=== PATIENT | female | born 1965 | race Caucasian/White ===

== ENCOUNTER 2017-10-29 00:25 | Emergency (ER) | payer OTHER, MEDICARE, SELFPAY ==
--- NOTE | 2017-10-29 00:33 | DI.RAD.S_ITS ---
PROCEDURE: XR WRIST RT MIN 3V INDICATIONS: hurt arm 3 weeks ago thinks broken TECHNIQUE: 3 views of the wrist were acquired. COMPARISON: None. FINDINGS: Bones: There is a fracture seen involving the distal ulnar shaft, with mild angulation. There is abundant periosteal reaction seen, with mild bony bridging. No additional fractures are detected. Degenerative changes are seen, particularly involving the radial aspect of the carpus. Soft tissues: No suspicious soft tissue calcifications. IMPRESSION: Subacute, healing fracture involving the distal ulna, which is consistent with the given history of potential fracture 3 weeks previously. Dictated by: Livan Mendoza M.D. on 10/29/2017 at 10:41 Approved by: Livan Mendoza M.D. on 10/29/2017 at 10:42
[2017-10-29 00:34] VITALS: BP 149/84; PULSE 125; RESP 18; TEMP 36.9; O2SAT 100; BMI 20.2
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
[2017-10-29 01:44] VITALS: BP 140/80; PULSE 110; RESP 16; TEMP 36.8; O2SAT 99
== END 2017-10-29 01:45 | disposition home or self-care (01) ==
PROVIDERS: Emergency Provider Emergency Medicine
DX: S52.201G Unspecified fracture of shaft of right ulna, subsequent encounter for closed fracture with delayed healing (principal); W22.8XXA Striking against or struck by other objects, initial encounter
CPT/HCPCS: 29125; 73110; 99282; 99283

== ENCOUNTER 2018-05-21 01:43 | Emergency (ER) | payer MEDICARE, SELFPAY ==
[2018-05-21 01:46] VITALS: BP 150/87; PULSE 106; RESP 16; TEMP 36.4; O2SAT 99; BMI 18.8
--- NOTE | 2018-05-21 02:04 | ED.DENTAL ---
HPI - Dental/Oral General Chief complaint: Dental/Oral Stated complaint: states abscess right side of face Time Seen by Provider: 05/21/18 01:45 Source: patient Mode of arrival: ambulatory Limitations: no limitations History of Present Illness HPI Narrative: 52-year-old female here for evaluation which he thinks is a dental abscess. She has 2 broken teeth in the right lower side of her jaw. States they have been hurting for the past couple days but the swelling started within the past 24 hours. No fevers. Has been taking Motrin at home for them. States she knows that she has some teeth that need extracted however she wants ?implants ?. She does not have a dentist in local area. Related Data Previous Rx's Medication Instructions Recorded penicillin V potassium 500 mg PO QID 7 Days #28 tab 05/21/18 Allergies Allergy/AdvReac Type Severity Reaction Status Date / Time INGREDIENT: NO KNOWN - NO Allergy Unknown Uncoded 05/18/17 12:59 KNOWN DRUG ALLERGY Review of Systems Constitutional Denies fever(s) and Reports headache(s) ENT Ears, Nose, Mouth, and Throat: Reports facial pain, Reports headache(s), Reports mouth pain, Denies nasal congestion and Denies disequilibrium Comments: Pain radiating to the right ear Cardiovascular Denies dyspnea Respiratory Denies dyspnea Integumentary/Breasts Denies rash Neurologic Reports headache(s) and Denies disequilibrium Hematologic/Lymphatic Denies easy bleeding and Denies easy bruising Allergic/Immunologic Denies urticaria [facility] Medical History Healthy adult (Acute) Social History Smoking Status: Current every day smoker Social History Smoking Status: Current every day smoker Exam Initial Vital Signs Initial Vital Signs: Vital Signs Temperature 97.6 F 05/21/18 01:46 Pulse Rate 106 H 05/21/18 01:46 Respiratory Rate 16 05/21/18 01:46 Blood Pressure 150/87 H 05/21/18 01:46 Pulse Oximetry 99 05/21/18 01:46 Const General: cooperative, well developed, well groomed and No acute distress Orientation: alert, awake and oriented x3 HENMT Head: normal to inspection and normocephalic Ears: TM's normal bilaterally Nose: external nose normal Face and sinus: other (Swelling right mandibular area. Without overlying erythema) Mouth: oral mucosae normal Teeth and gingiva: other (Poor dentition. Cracked teeth right lower side) Throat: posterior oropharynx normal Resp Effort & Inspection: normal respiratory effort Skin Lesions: no lesions Rashes: no rashes Neuro General: alert, awake and oriented x3 Extrem General: normal to inspection and capillary refill normal Course Orders Ordered: Discontinued Medications Hydrocodone Bitart/Acetaminophen (Vicodin Prepack) 1 bottle MISC SEEINSTR ONE Stop: 05/21/18 02:05 Hydrocodone Bitart/Acetaminophen (Roll 5/325) 1 tab PO NOW ONE Stop: 05/21/18 02:05 Penicillin V Potassium (Veetids) 500 mg PO NOW ONE Stop: 05/21/18 02:05 Vital Signs - 8 hr 05/21/18 01:46 Temperature 97.6 F Pulse Rate 106 H Respiratory Rate 16 Blood Pressure 150/87 H Pulse Oximetry 99 MDM - Dental/Oral MDM Narrative Medical decision making narrative: Patient with very poor dentition and missing teeth and worn teeth right lower side of her jaw. She does have swelling along the right mandibular area. I did perform an inferior alveolar block patient was given 1st dose of oral antibiotics here in the emergency department. Will send home with antibiotics and also a prepack of pain medication. Informed her that she did need to see dental for definitive treatment. She was given return precautions. No respiratory issues. Discharge Plan Departure Patient Disposition: Home Clinical Impression: Dental abscess Instructions: Tooth Abscess, DI for Dental Pain Activity Restrictions/Additional Instructions: You do need to follow-up with the dentist. You can contact the [facility] for follow-up. Also contact her primary doctor. Take the antibiotics as directed. Return to the emergency department for any new or worsening symptoms Prescriptions: New penicillin V potassium 500 mg tablet 500 mg PO QID 7 Days Qty: 28 RF: 0
[2018-05-21] MEDS: HYDROCODONE/ACET 5/325 TABLET 1 TAB PO (02:19)
[2018-05-21] MEDS: HYDROCODONE/ACET 5/325 PREPACK 1 BOTTLE MISC (02:20)
[2018-05-21] MEDS: PENICILLIN 250 MG TAB PREPACK 1 BOTTLE MISC (02:20)
[2018-05-21 02:47] VITALS: BP 124/87; PULSE 98; RESP 16; TEMP 36.7; O2SAT 98
== END 2018-05-21 02:49 | disposition home or self-care (01) ==
LOC: ED 02:47
PROVIDERS: Emergency Provider Emergency Medicine
DX: K04.7 Periapical abscess without sinus (principal)
CPT/HCPCS: 99282; 99283

== ENCOUNTER 2019-03-28 21:37 | Emergency (ER) | payer MEDICARE, SELFPAY ==
[2019-03-28 21:44] VITALS: BP 134/99; PULSE 96; RESP 18; TEMP 36.2
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
[2019-03-28] MEDS: KETOROLAC 60 MG/2 ML VIAL 30 MG IM (22:26)
[2019-03-28] MEDS: predniSONE 20 MG TABLET 40 MG PO (22:27)
[2019-03-28 22:46] VITALS: BP 119/74; PULSE 89; RESP 15; O2SAT 98
== END 2019-03-28 22:46 | disposition home or self-care (01) ==
PROVIDERS: Emergency Provider Emergency Medicine
DX: M54.12 Radiculopathy, cervical region (principal)
CPT/HCPCS: 96372; 99283; J1885

== ENCOUNTER 2019-03-30 08:17 | Emergency (ER) | payer MEDICARE, SELFPAY ==
[2019-03-30 08:29] VITALS: BP 128/86; PULSE 96; RESP 18; TEMP 36.3; O2SAT 96; BMI 19.7
--- NOTE | 2019-03-30 08:35 | PC.NURSE ---
unable to obtain visual acuity on left eye. swollen shut.
--- NOTE | 2019-03-30 08:40 | ED_ITS ---
HPI - Skin/Abscess/Foreign Bdy General Chief complaint: Eye Problems Stated complaint: left eye swelling Time Seen by Provider: 03/30/19 08:18 Source: patient Mode of arrival: Family Vehicle Limitations: no limitations History of Present Illness HPI narrative: 53-year-old female daily smoker presents with a chief complaint left-sided forehead pain, swelling and redness. She states 2 days ago she had painful ingrown hair and she attempted to pull it, additionally she had a small pimple that she tried to pop and since then her swelling has worsened a bit and she has developed swelling. The swelling impedes her vision, but when lid pulled open she has full view. No painful ROM of eye. No systemic findings such as fever, chills, nausea or vomiting. MD complaint: abscess/boil Onset (ago): day(s) Tetanus up to date: no Location: face Severity: mild Quality: aching Pain Consistency: constant Relieving factors: none Exacerbating factors: palpation Context: other Treatments prior to arrival: attempted to drain pus at home Related Data Previous Rx's Medication Instructions Recorded gabapentin 300 mg PO TID #90 cap 03/28/19 prednisone 40 mg PO DAILY 4 Days #8 tab 03/28/19 doxycycline hyclate 100 mg PO BID #20 tab 03/30/19 ibuprofen 600 mg PO TID-QID PRN #20 tab 03/30/19 Allergies Allergy/AdvReac Type Severity Reaction Status Date / Time No Known Drug Allergies Allergy Verified 03/30/19 08:53 Review of Systems Constitutional Constitutional: Denies chills, Denies fatigue, Denies fever(s), Denies frequent falls, Denies lethargy and Denies weakness Eyes Eyes: Denies change in vision, Denies eye discharge, Denies irritation and Denies loss of vision ENT Ears, Nose, Mouth, and Throat: Denies change in voice, Denies dizziness, Denies neck pain, Denies sore throat and Denies throat swelling Cardiovascular Cardiovascular: Denies chest pain, Denies irregular heart rhythm, Denies lightheadedness, Denies palpitations, Denies dyspnea, Denies dyspnea on exertion and Denies orthopnea Respiratory Respiratory: Denies cough, Denies dyspnea, Denies dyspnea on exertion and Denies wheezing Gastrointestinal Gastrointestinal: Denies abdominal pain, Denies change in bowel habits, Denies diarrhea, Denies nausea and Denies vomiting Genitourinary Genitourinary: Denies hematuria, Denies flank pain, Denies urinary incontinence and Denies urinary urgency Musculoskeletal Musculoskeletal: Denies back pain, Denies muscle weakness, Denies neck pain, Denies numbness and Denies tingling Integumentary/Breasts Skin/Breast: Denies pruritus, Denies erythema, Denies rash, Reports skin pain, Reports skin swelling and Denies wounds Neurologic Neurologic: Denies behavioral changes, Denies confusion, Denies dizziness, Denies frequent falls, Denies loss of vision, Denies numbness, Denies tingling and Denies weakness Psychiatric Psychiatric: Denies anxiety, Denies behavioral changes, Denies confusion, Denies depression, Denies homicidal ideation and Denies suicidal ideation Endocrine Endocrine: Denies fatigue, Denies flushing and Denies palpitations Hematologic/Lymphatic Hematologic/Lymphatic: Denies easy bruising Allergic/Immunologic Allergic/Immunologic: Denies urticaria, Denies throat swelling and Denies wheezing Patient History Social History Smoking Status: Current every day smoker Smoking Status: Current every day smoker alcohol intake frequency: 0-2 drinks per day Substance Use Type: marijuana Exam Narrative Exam Narrative: GENERAL: [53] year old patient appears stated age. Well- nourished, well-developed patient, in mild distress. Complaining of Left sided facial pain HEAD: Redness with some induration (no fluctuance) above left brow. Upper lid edematous, but no erythema or tenderness. No suggestion of abscess EYES: Pupils equal round and reactive. Extraocular motions intact. No scleral icterus. No injection or drainage. Eye lid can be opened manually, causing pain in brow. No scleral injection, no painful EOMs, no vision change ENT: Nose without bleeding, purulent drainage. Throat without erythema, tonsillar hypertrophy or exudate. Airway patent. NECK: Trachea midline. Non tender CARDIOVASCULAR: Regular rate and rhythm without murmurs, gallops, or rubs. RESPIRATORY: Clear to auscultation. Breath sounds equal bilaterally. No wheezes, rales, or rhonchi. GASTROINTESTINAL: Abdomen soft, non-tender, nondistended. EXTREMITIES: No edema or joint tenderness. BACK: Nontender without deformity or crepitance. No flank tenderness. NEURO: AOx3. SKIN: No rash or erythema of visible areas other than mentioned above Initial Vital Signs Initial Vital Signs: Vital Signs Temperature 97.4 F L 03/30/19 08:29 Pulse Rate 96 H 03/30/19 08:29 Respiratory Rate 18 03/30/19 08:29 Blood Pressure 128/86 03/30/19 08:29 Pulse Oximetry 96 03/30/19 08:29 Course Course Course Narrative: Patient expresses concern regarding access to ABX due to lack of funds. GoodRx card given (Doxy is $12 at [facility]) and call placed to [employer] for other options. Patieng given first dose now. [employer] able to produce voucher for ABX. Orders Ordered: Discontinued Medications Diphtheria/Tetanus/Acell Pertussis (Adacel) 0.5 ml IM .ONCE ONE Stop: 03/30/19 08:52 Last Admin: 03/30/19 08:56 Dose: 0.5 ml Documented by: FERNANDO Doxycycline Hyclate (Vibramycin) 100 mg PO NOW ONE Stop: 03/30/19 08:34 Last Admin: 03/30/19 08:44 Dose: 100 mg Documented by: JAVIER Ibuprofen (Advil) 400 mg PO NOW ONE Stop: 03/30/19 08:42 Last Admin: 03/30/19 08:44 Dose: 400 mg Documented by: JAVIER Vital Signs Vital signs: Vital Signs - 8 hr 03/30/19 08:29 Temperature 97.4 F L Pulse Rate 96 H Respiratory Rate 18 Blood Pressure 128/86 Pulse Oximetry 96 MDM - Skin/Abscess/Foreign Bdy MDM Narrative Medical decision making narrative: Small abscess drained at home with worsening symptoms in aftermath. No ongoing fluctuance or drainage. Upper lid swollen but doesn't show signs of infection. No painful EOM to suggest orbital cellulitis. Nothing to I/D. No indication of systemic findings. No need for imaging at this point. Return precautions given, questions answered to her apparent satisfaction. Discharge Plan Departure Patient Disposition: Home Clinical Impression: Cellulitis of face Instructions: DI for Cellulitis -- Adult Activity Restrictions/Additional Instructions: *You have been diagnosed with [cellulitis with possible small spontaneously draining abscess above left eye] *What to do: *Take medications as directed *Follow up with your primary care provider in 2-3 days, call for an appointment. Let them know you were seen in the Emergency Department and that we ask that you be seen in follow up *Return to ER if you should have any new, worsening or concerning symptoms, such as [worsening facial swelling, pain, or the development of fever, chills, or other bothersome symptoms ] Prescriptions: New ibuprofen 600 mg tablet 600 mg PO TID-QID PRN (Reason: pain) Qty: 20 RF: 0 doxycycline hyclate 100 mg tablet 100 mg PO BID Qty: 20 RF: 0 No Action prednisone 20 mg tablet 40 mg PO DAILY 4 Days Qty: 8 RF: 0 gabapentin 300 mg capsule 300 mg PO TID Qty: 90 RF: 0 Referrals: [facility] [Outside]
[2019-03-30] MEDS: DOXYCYCLINE HYCLATE 100 MG TABLET PO (08:44)
[2019-03-30] MEDS: IBUPROFEN 400 MG TABLET PO (08:44)
[2019-03-30] MEDS: TET,DIPH,PERTUSS(ACELL),VAC/PF 0.5 ML SYRINGE IM (08:56)
[2019-03-30 09:45] VITALS: BP 116/65; PULSE 91; RESP 18; O2SAT 100
--- NOTE | 2019-03-30 11:13 | CM.SWNOTE ---
This [employer]ENGER FLOORPERSON requested for input from Dr Paiz; Fabiola arrives w/a facial cellulitis requiring po abx that she states she cannot pay for. Dr Paiz states the Rx will cost approx $12 and Fabiola will not be able to fill until she gets paid next week. If she does not take this abx, Fabiola will likely present again to our ED since she has an active infection that needs treatment w/ abx. Reviewed chart, Fabiola has MCR, no secondary coverage Met w/Fabiola and a friend at bedside, she states she has MCR, she needs to sign up for Part D and Medicaid but missed open enrollment because I had other stuff going on. Fabiola admits she has no $ for out of pocket cost and would like help paying for meds from yesterday's ER visit (arrived w/shoulder pain and prescribed gabapentin and prednisone) and abx today. This MESSENGER FLOORPERSON suggested Fabiola ask Dr Paiz about yesterday's prescribed meds; explained it was unlikely those medications would be funded because the infection was the concern today Fabiola admits she has all the resources needed for guidance on health insurance/prescription coverage and options, states no further needs from this MESSENGER FLOORPERSON Worked w/ JENNIFER Mitchell and Dr Paiz to complete Medical [employer] Fund Form for the abx, placed call to [facility] to confirm they can accept this form, and they are able. Stephen to complete the remaining logistics for this DC. RANI Valencia
== END 2019-03-30 09:46 | disposition home or self-care (01) ==
PROVIDERS: Emergency Provider Emergency Medicine
DX: L03.211 Cellulitis of face (principal); H00.034 Abscess of left upper eyelid; Z23 Encounter for immunization
CPT/HCPCS: 90471; 99283; 90715

== ENCOUNTER 2020-08-11 20:58 | Emergency (ER) | payer MEDICARE, SELFPAY ==
[2020-08-11 21:00] VITALS: BP 129/87; PULSE 99; RESP 18; TEMP 36.6; O2SAT 96
--- NOTE | 2020-08-11 21:10 | ED_ITS ---
HPI - Dental/Oral General Chief complaint: Dental/Oral Stated complaint: absessed tooth/gum Time Seen by Provider: 08/11/20 20:59 Source: patient Mode of arrival: Ambulatory Limitations: no limitations History of Present Illness HPI Narrative: 54-year-old female daily smoker with noncontributory medical history presents with a chief complaint of pain and swelling of her right lower jaw and alongside the teeth of her right lower jaw. She does attempted to drain which he thinks is an abscess at home and got a small amount of pus out. She denies any difficulty swallowing nor systemic findings such as fever, chills nor nausea or vomiting. She is directly has bad teeth and has had dental abscesses before. She denies any trauma or other complaints Related Data Previous Rx's Medication Instructions Recorded ibuprofen 600 mg tablet 600 mg PO TID-QID PRN #20 tab 03/30/19 amoxicillin 875 mg-potassium 1 tab PO BID #20 tab 08/11/20 clavulanate 125 mg tablet (Augmentin) Allergies Allergy/AdvReac Type Severity Reaction Status Date / Time No Known Drug Allergies Allergy Verified 08/11/20 21:04 Review of Systems Review of Systems Narrative: GENERAL: Denies chills, fatigue, malaise, fever, sweats. HEENT: See HPI RESPIRATORY: Denies dyspnea, cough, wheezing, hemoptysis, sputum. CARDIOVASCULAR: Denies chest pain, palpitations, orthopnea, edema, GASTROINTESTINAL: Denies nausea, vomiting, abdominal pain, diarrhea, constipation, melena. : Denies dysuria, frequency, incontinence, hematuria, urinary retention. MUSCULOSKELETAL: denies weakness, joint pain, or bony pain SKIN: See HPI NEUROLOGIC: Denies weakness, headache, numbness, change in speech, confusion, seizures, incoordination. PSYCHIATRIC: No concerning psychosocial issues. 12 point review of systems is negative except for those stated above Patient History Medical History (Updated 08/11/20 @ 21:13 by Mckenzie Lau RN) Fibromyalgia Healthy adult Social History Smoking Status: Current every day smoker Smoking Status: Current every day smoker alcohol intake frequency: 0-2 drinks per day Substance Use Type: marijuana Exam Narrative Exam Narrative: GEN: AOx3 and in mild distress EYES: Pupils are equal, round, and reactive to light and accommodation. Extraoccular muscles are intact bilaterally. There is no subconjunctival hemorrhage or exudate. ENT: Moderate right mandibular swelling, intraoral pain, swelling and fluctuance are not present CHEST: Lungs are clear to auscultation bilaterally and free of wheezes, rales, or rhonchi. Heart rate is regular rhythm, there are no murmurs, clicks, rubs, or gallops. There is no chest wall tenderness. ABD: Abdomen is soft and nontender. There is no guarding or rebound. Bowel sounds are normal in all 4 quadrants. There is no mass or organomegaly. EXT: Full painless ROM of all extremities with no loss of sensation or strength. SKIN: Warm, pink, and dry. No erythema or rash Initial Vital Signs Initial Vital Signs: Vital Signs Temperature 97.8 F 08/11/20 21:00 Pulse Rate 99 H 08/11/20 21:00 Respiratory Rate 18 08/11/20 21:00 Blood Pressure 129/87 08/11/20 21:00 Pulse Oximetry 96 08/11/20 21:00 Course Orders Ordered: Discontinued Medications Hydrocodone Bitart/Acetaminophen (Hydrocodone/Acet 5/325 Prepack) 1 bottle MISC SEEINSTR ONE Stop: 08/11/20 21:17 Last Admin: 08/11/20 21:24 Dose: 1 bottle Documented by: CHELE Amoxicillin/Clavulanate Potassium (Amoxicillin/Clav 875/125 Mg) 1 tab PO NOW ONE Stop: 08/11/20 21:07 Last Admin: 08/11/20 21:20 Dose: 1 tab Documented by: CHELE Lidocaine/Epinephrine (Lidocaine 1% W/Epi) 1 ml SUBCUT NOW ONE Stop: 08/11/20 21:07 Last Admin: 08/11/20 21:21 Dose: Not Given Documented by: CHELE Vital Signs Vital signs: Vital Signs - 8 hr 08/11/20 21:00 Temperature 97.8 F Pulse Rate 99 H Respiratory Rate 18 Blood Pressure 129/87 Pulse Oximetry 96 Discharge Plan Departure Patient Disposition: Home Clinical Impression: Dental abscess Instructions: Tooth Abscess Activity Restrictions/Additional Instructions: *You have been diagnosed with [dental abscess] *What to do: *Please continue to take your regular medications as directed. [ ] New medication prescriptions sent to your pharmacy: [ ] [ x] New medication written as a paper prescription [ ] No new medications given *Please follow up with your primary care provider in 2-3 days, call for an appointment. Let them know you were seen in the Emergency Department and that we ask that you be seen in follow up. We will electronically transmit a record of today's note if your PCP is in our system *If you do not have a primary care provider please contact the [facility] Resource line at [phone]. They will ask some questions about your medical history and help get you set up with a doctor in the community. *Return to Emergency Department if you should have any new, worsening or concerning symptoms, such as [fever greater than 101 F, shaking chills, worsening pain, persistent vomiting or other bothersome symptoms] Prescriptions: New amoxicillin-pot clavulanate [Augmentin] 875-125 mg tablet 1 tab PO BID Qty: 20 RF: 0 No Action ibuprofen 600 mg tablet 600 mg PO TID-QID PRN (Reason: pain) Qty: 20 RF: 0 Referrals: Miscellaneous,Doctor, MD [Primary Care Provider] -
[2020-08-11] MEDS: AMOXICILLIN/CLAV 875/125 MG 1 TAB PO (21:20)
[2020-08-11] MEDS: HYDROCODONE/ACET 5/325 PREPACK 1 BOTTLE MISC (21:24)
[2020-08-11 21:27] VITALS: BP 126/86; PULSE 85; RESP 16; O2SAT 97
== END 2020-08-11 21:27 | disposition home or self-care (01) ==
PROVIDERS: Emergency Provider Emergency Medicine
DX: K04.7 Periapical abscess without sinus (principal)
CPT/HCPCS: 99283

== ENCOUNTER 2022-05-31 15:06 | Emergency (ER) | payer MEDICARE, SELFPAY ==
[2022-05-31] VITALS (8 sets, daily range): BP systolic 95–111; BP diastolic 56–60; PULSE 84–105; RESP 16–28; TEMP 37.1–37.8; O2SAT 95–100; BMI 19.7
--- NOTE | 2022-05-31 15:21 | DI.RAD.S_ITS ---
PROCEDURE: XR CHEST 1V INDICATIONS: cough TECHNIQUE: One view of the chest was acquired. COMPARISON: None. FINDINGS: Surgical changes and devices: None. Lungs and pleura: Mild patchy opacity at the left lung base. No pleural effusion or pneumothorax. Mediastinum: Mediastinal contours appear normal. Heart size is normal. Bones and chest wall: No suspicious bony lesions. Overlying soft tissues appear unremarkable. IMPRESSION: Mild nonspecific left basilar opacity, could represent pneumonia and/or aspiration in the appropriate clinical setting, atelectasis is also possible. Dictated by: Elbert Fernandez M.D. on 05/31/2022 at 16:46 Approved by: Elbert Fernandez M.D. on 05/31/2022 at 16:47
[2022-05-31 15:47] LABS: Add Manual Diff / Slide Review NO; Basophils Absolute Auto 100 /uL (0-100); Basophils Percent Auto 0.6 % (0-2); Eosinophils Absolute Auto 100 /uL (0-450); Eosinophils Percent Auto 0.4 % (2-4); Hematocrit 37.3 % (36-46); Hemoglobin 12.7 g/dL (12.0-16.0); INR 1.1 (0.9-1.3); Lymphocytes Absolute Auto 1300 /uL (1100-4500); Lymphocytes Percent Auto 10.7 % (25-40); Mean Corpuscular Hemoglobin 30.4 PG (26-34); Mean Corpuscular Volume 89.3 fL (80-100); Monocytes Absolute Auto 1000 /uL (0-900); Monocytes Percent Auto 8.1 % (3-14); Neutrophils Absolute Auto 9500 /uL (1500-7000); Neutrophils Percent Auto 80.2 % (50-75); Platelet Count 282 X10^3/uL (150-400); Prothrombin Time 12.6 SECONDS (10.1-12.7); Red Blood Cell Count 4.18 X10^6/uL (4.0-5.2); Red Cell Distribution Width 13.7 % (11.6-14.8); White Blood Cell Count 11.9 X10^3/uL (4.5-11.0)
[2022-05-31 15:49] LABS: PTT Partial Thromboplastin Tim 29 SECONDS (26-36)
[2022-05-31 15:51] LABS: Alanine Aminotransferase 52 IU/L (<35); Albumin 4.1 g/dL (3.5-5.0); Albumin Globulin Ratio 1.2 (1.0-2.8); Alkaline Phosphatase 151 U/L (38-126); Aspartate Aminotransferase 36 IU/L (14-36); BUN Creatinine Ratio 18.8 (6-22); Bilirubin Total 1.1 mg/dL (0.2-1.3); Blood Urea Nitrogen 13 mg/dL (7-17); Calcium 8.8 mg/dL (8.4-10.2); Carbon Dioxide 26 mmol/L (22-32); Chloride 99 mmol/L (98-107); Estimated Glomerular Filt Rate > 60 mL/min (>60); Globulin 3.5 g/dL (1.7-4.1); Glucose 100 mg/dL (70-100); HEMOLYSIS 23 (0-50); Lactate (Lactic Acid) 1.1 mmol/L (0.7-2.1); Lipase 27 U/L (23-300); Potassium 4.1 mmol/L (3.4-5.1); Sodium 134 mmol/L (137-145); Total Protein 7.6 g/dL (6.3-8.2)
[2022-05-31] MEDS: SODIUM CHLORIDE 0.9% 1,000 ML 1000 ML IV (15:59)
--- NOTE | 2022-05-31 16:00 | PC.NURSE ---
Pt resting in hallway receiving fluids. NAD. CXR obtained. Lab called for 2nd set of blood cultures
[2022-05-31 16:08] LABS: Procalcitonin 0.14 ng/mL (<0.5)
--- NOTE | 2022-05-31 16:32 | ED.URI ---
HPI - URI/Sore Throat General Chief Complaint: Upper Respiratory Symptoms Stated Complaint: sick t-5/trouble breathing/cough Time Seen by Provider: 05/31/22 16:16 History of Present Illness HPI Narrative: Patient 48-year-old female history of smoking presents today with fever body aches cough shortness of breath. She says it has been ongoing for about 5 days. Cough and shortness of breath seem to be getting worse. She is a mildly productive cough. She occasionally has been taking ibuprofen. She is notable for sepsis criteria hypotensive tachycardic and febrile. She reports that her blood pressure is lower than normal but not sure of the actual numbers. Related Data Previous Rx's Medication Instructions Recorded albuterol sulfate 90 mcg/actuation 2 puff inhalation Q4-6H PRN 05/31/22 aerosol inhaler shortness of breath or wheezing #8.5 grams amoxicillin 500 mg capsule 1,000 mg PO TID 5 days #30 caps 05/31/22 azithromycin 250 mg tablet See Rx Instructions PO .COMPLEX #6 05/31/22 tabs prednisone 20 mg tablet 40 mg PO DAILY #10 tabs 05/31/22 Allergies Allergy/AdvReac Type Severity Reaction Status Date / Time No Known Drug Allergies Allergy Verified 05/31/22 16:41 Review of Systems Review of Systems ROS Unobtainable: All systems reviewed & are unremarkable except as noted in HPI and below Patient History Medical History Fibromyalgia Healthy adult Social History Smoking Status: Current every day smoker Smoking Status: Current every day smoker alcohol intake frequency: 0-2 drinks per day Substance Use Type: marijuana Exam Initial Vital Signs Initial Vital Signs: Vital Signs Temperature 100.0 F H 05/31/22 15:18 Pulse Rate 105 H 05/31/22 15:18 Respiratory Rate 16 05/31/22 15:18 Blood Pressure 95/56 L 05/31/22 15:18 Pulse Oximetry 95 05/31/22 15:18 Oxygen Delivery Method Room Air 05/31/22 15:18 GENERAL: Alert 56-year-old female appears to not feel well HEENT: Head atraumatic,EOMI, pupils reactive, face symmetric, moist mucous membranes CARDIOVASCULAR: Regular rate and rhythm without murmurs, rubs or gallops. RESPIRATORY: Slightly coarse breath sounds no tachypnea no hypoxia no signs of respiratory distress ABDOMEN: Soft, nontender. Normoactive bowel sounds all 4 quadrants. No guarding or rebound. EXTREMITIES: Normal range of motion, no clubbing or edema. Neurovascularly intact NEUROLOGICAL: Alert and oriented x4.Normal gait and speech SKIN: Warm, dry, no laceration, no petechiae, no rashes or lesions. Scores CURB-65 Confusion: No BUN >19mg/dL (>7mmol/L): No Respiratory rate greater or equal to 30: No SBP <90mmHg or DBP less or equal to 60mmHg: No Age 65 or Older: No CURB-65 Total: 0 Score 0-1 Outpatient care, Score 2 Inpt vs. Obs, Score 3 or over Inpt admit with ICU for score of 4-5 Course Orders Ordered: ED Orders 05/31/22 15:21 Chest [XR chest 1V] Stat 05/31/22 15:24 Respiratory Panel (Film Array) Stat 05/31/22 15:32 Complete Blood Count AUTO DIFF Stat Comprehensive Metabolic Panel Stat Lactate (Lactic Acid) Stat Lipase Stat PTT Partial Thromboplastin Johnathan Stat Procalcitonin Stat Prothrombin Time INR Stat 05/31/22 15:38 EKG-12 Lead Stat RT Consult Eval and Treat NOW 05/31/22 16:15 Blood Culture Stat 05/31/22 16:49 Ictotest Urine Stat Urine Microscopic Stat Discontinued Medications Albuterol/Ipratropium (Albuterol/Ipratropium 3 Ml Ampul) 3 ml INH NOW ONE Stop: 05/31/22 17:04 Last Admin: 05/31/22 18:42 Dose: 3 ml Documented By: CTS Amoxicillin (Amoxicillin 250 Mg Capsule) 1,000 mg PO NOW ONE Stop: 05/31/22 18:16 Last Admin: 05/31/22 18:36 Dose: 1,000 mg Documented By: CTS Azithromycin (Azithromycin 250 Mg Tablet) 500 mg PO NOW ONE Stop: 05/31/22 18:16 Last Admin: 05/31/22 18:37 Dose: 500 mg Documented By: CTS Sodium Chloride (Normal Saline 0.9%) 1,000 mls @ 1,000 mls/hr IV BOLUS ONE Stop: 05/31/22 16:37 Last Infusion: 05/31/22 17:02 Dose: 0 mls/hr Documented By: Admin: 05/31/22 15:59 Dose: 1,000 mls/hr Documented By: VIRI Sodium Chloride (Normal Saline 0.9%) 1,564.89 mls @ 521.63 mls/hr 30 ml/kg infuse over 3 hr (1564.89 ml) IV NOW ONE Stop: 05/31/22 19:15 Last Infusion: 05/31/22 17:04 Dose: 0 mls/hr Documented By: Infusion: 05/31/22 17:03 Dose: 521.63 mls/hr Documented By: Admin: 05/31/22 17:02 Dose: 521.63 mls/hr Documented By: ROBERTO Methylprednisolone (Methylprednisolone 125 Mg/2 Ml Vial) 125 mg IV NOW ONE Stop: 05/31/22 18:16 Last Admin: 05/31/22 18:36 Dose: 125 mg Documented By: VIRI Ondansetron HCl (Ondansetron 4 Mg Odt) 4 mg SL NOW PRN PRN Reason: Nausea And Vomiting Ondansetron HCl (Ondansetron 4 Mg/2 Ml Inj) 4 mg IV NOW PRN PRN Reason: Nausea And Vomiting Vital Signs Vital signs: Vital Signs - 8 hr 05/31/22 15:18 05/31/22 16:14 05/31/22 16:15 Temperature 100.0 F H Pulse Rate 105 H 97 H 97 H Respiratory Rate 16 Blood Pressure 95/56 L Pulse Oximetry 95 98 98 Oxygen Delivery Method Room Air 05/31/22 16:15 05/31/22 16:30 05/31/22 17:00 Temperature Pulse Rate 84 96 H Respiratory Rate 24 22 Blood Pressure 111/60 Pulse Oximetry 96 99 Oxygen Delivery Method 05/31/22 17:30 05/31/22 18:00 05/31/22 18:18 Temperature Pulse Rate 93 H 93 H 94 H Respiratory Rate 24 28 H 20 Blood Pressure Pulse Oximetry 97 97 100 Oxygen Delivery Method 05/31/22 18:18 Temperature 98.8 F Pulse Rate Respiratory Rate Blood Pressure 102/58 L Pulse Oximetry Oxygen Delivery Method MDM - URI/Sore Throat Lab Data 05/31/22 15:32 05/31/22 15:32 Labs: Lab Results 05/31/22 05/31/2223 Range/Units 15:24 15:32 15:32 WBC 11.9 H (4.5-11.0) X10^3/uL RBC 4.18 (4.0-5.2) X10^6/uL Hgb 12.7 (12.0-16.0) g/dL Hct 37.3 (36-46) % MCV 89.3 (80-100) fL MCH 30.4 (26-34) PG MCHC 34.0 (30-36) % RDW 13.7 (11.6-14.8) % Plt Count 282 (150-400) X10^3/uL Neut % (Auto) 80.2 H (50-75) % Lymph % (Auto) 10.7 L (25-40) % [place] % (Auto) 8.1 (3-14) % Eos % (Auto) 0.4 L (2-4) % Baso % (Auto) 0.6 (0-2) % Neut # (Auto) 9500 H (6352-8480) /uL Lymph # (Auto) 1300 (8844-9690) /uL [place] # (Auto) 1000 H (0-900) /uL Eos # (Auto) 100 (0-450) /uL Baso # (Auto) 100 (0-100) /uL PT 12.6 (10.1-12.7) SECONDS INR 1.1 (0.9-1.3) APTT 29 (26-36) SECONDS Sodium (137-145) mmol/L Potassium (3.4-5.1) mmol/L Chloride (98-107) mmol/L Carbon Dioxide (22-32) mmol/L BUN (7-17) mg/dL Creatinine (0.52-1.04) mg/dL Estimated GFR (>60) mL/min BUN/Creatinine Ratio (6-22) Glucose (70-100) mg/dL Lactate (0.7-2.1) mmol/L Calcium (8.4-10.2) mg/dL Total Bilirubin (0.2-1.3) mg/dL AST (14-36) IU/L ALT (<35) IU/L Alkaline Phosphatase (38-126) U/L Total Protein (6.3-8.2) g/dL Albumin (3.5-5.0) g/dL Globulin (1.7-4.1) g/dL Albumin/Globulin Ratio (1.0-2.8) Lipase (23-300) U/L Procalcitonin (<0.5) ng/mL Ur Bilirubin Confirm (Negative) Urine RBC (0-5/HPF) Urine WBC (0-5/HPF) Urine Bacteria (None) Ur Culture Indicated? Chlamy pneumoniae PCR Not detected (Not Detect) Adenovirus (PCR) Not detected (Not Detect) B. pertussis DNA (PCR) Not detected (Not Detecte) B.parapertussis DNA PCR Not detected (Not Detecte) Coronavirus OC43 (PCR) Not detected (Not Detect) Coronavirus HKU1 (PCR) Not detected (Not Detect) Coronavirus 229E (PCR) Not detected (Not Detect) SARS-CoV-2 (PCR) Not detected (Not Detecte) Coronavirus NL63 (PCR) Not detected (Not Detect) Human Metapneumovir PCR Not detected (Not Detect) Influenza Type A (PCR) Not detected (Not Detect) Influenza Type B (PCR) Not detected (Not Detect) M. pneumoniae (PCR) Not detected (Not Detect) Parainfluenza 1 (PCR) Not detected (Not Detect) Parainfluenza 2 (PCR) Not detected (Not Detect) Parainfluenza 3 (PCR) Not detected (Not Detect) Parainfluenza 4 (PCR) Not detected (Not Detect) RSV (PCR) Not detected (Not Detect) Entero/Rhino (PCR) Detected H (Not Detect) 05/31/22 05/31/22 05/31/22 Range/Units 15:32 15:32 16:49 WBC (4.5-11.0) X10^3/uL RBC (4.0-5.2) X10^6/uL Hgb (12.0-16.0) g/dL Hct (36-46) % MCV (80-100) fL MCH (26-34) PG MCHC (30-36) % RDW (11.6-14.8) % Plt Count (150-400) X10^3/uL Neut % (Auto) (50-75) % Lymph % (Auto) (25-40) % [place] % (Auto) (3-14) % Eos % (Auto) (2-4) % Baso % (Auto) (0-2) % Neut # (Auto) (5931-3731) /uL Lymph # (Auto) (4571-9592) /uL [place] # (Auto) (0-900) /uL Eos # (Auto) (0-450) /uL Baso # (Auto) (0-100) /uL PT (10.1-12.7) SECONDS INR (0.9-1.3) APTT (26-36) SECONDS Sodium 134 L (137-145) mmol/L Potassium 4.1 (3.4-5.1) mmol/L Chloride 99 (98-107) mmol/L Carbon Dioxide 26 (22-32) mmol/L BUN 13 (7-17) mg/dL Creatinine 0.69 (0.52-1.04) mg/dL Estimated GFR > 60 (>60) mL/min BUN/Creatinine Ratio 18.8 (6-22) Glucose 100 (70-100) mg/dL Lactate 1.1 (0.7-2.1) mmol/L Calcium 8.8 (8.4-10.2) mg/dL Total Bilirubin 1.1 (0.2-1.3) mg/dL AST 36 (14-36) IU/L ALT 52 H (<35) IU/L Alkaline Phosphatase 151 H (38-126) U/L Total Protein 7.6 (6.3-8.2) g/dL Albumin 4.1 (3.5-5.0) g/dL Globulin 3.5 (1.7-4.1) g/dL Albumin/Globulin Ratio 1.2 (1.0-2.8) Lipase 27 (23-300) U/L Procalcitonin 0.14 (<0.5) ng/mL Ur Bilirubin Confirm Negative (Negative) Urine RBC (0-5/HPF) Urine WBC (0-5/HPF) Urine Bacteria (None) Ur Culture Indicated? Chlamy pneumoniae PCR (Not Detect) Adenovirus (PCR) (Not Detect) B. pertussis DNA (PCR) (Not Detecte) B.parapertussis DNA PCR (Not Detecte) Coronavirus OC43 (PCR) (Not Detect) Coronavirus HKU1 (PCR) (Not Detect) Coronavirus 229E (PCR) (Not Detect) SARS-CoV-2 (PCR) (Not Detecte) Coronavirus NL63 (PCR) (Not Detect) Human Metapneumovir PCR (Not Detect) Influenza Type A (PCR) (Not Detect) Influenza Type B (PCR) (Not Detect) M. pneumoniae (PCR) (Not Detect) Parainfluenza 1 (PCR) (Not Detect) Parainfluenza 2 (PCR) (Not Detect) Parainfluenza 3 (PCR) (Not Detect) Parainfluenza 4 (PCR) (Not Detect) RSV (PCR) (Not Detect) Entero/Rhino (PCR) (Not Detect) 05/31/22 Range/Units 16:49 WBC (4.5-11.0) X10^3/uL RBC (4.0-5.2) X10^6/uL Hgb (12.0-16.0) g/dL Hct (36-46) % MCV (80-100) fL MCH (26-34) PG MCHC (30-36) % RDW (11.6-14.8) % Plt Count (150-400) X10^3/uL Neut % (Auto) (50-75) % Lymph % (Auto) (25-40) % [place] % (Auto) (3-14) % Eos % (Auto) (2-4) % Baso % (Auto) (0-2) % Neut # (Auto) (1358-4033) /uL Lymph # (Auto) (0683-1390) /uL [place] # (Auto) (0-900) /uL Eos # (Auto) (0-450) /uL Baso # (Auto) (0-100) /uL PT (10.1-12.7) SECONDS INR (0.9-1.3) APTT (26-36) SECONDS Sodium (137-145) mmol/L Potassium (3.4-5.1) mmol/L Chloride (98-107) mmol/L Carbon Dioxide (22-32) mmol/L BUN (7-17) mg/dL Creatinine (0.52-1.04) mg/dL Estimated GFR (>60) mL/min BUN/Creatinine Ratio (6-22) Glucose (70-100) mg/dL Lactate (0.7-2.1) mmol/L Calcium (8.4-10.2) mg/dL Total Bilirubin (0.2-1.3) mg/dL AST (14-36) IU/L ALT (<35) IU/L Alkaline Phosphatase (38-126) U/L Total Protein (6.3-8.2) g/dL Albumin (3.5-5.0) g/dL Globulin (1.7-4.1) g/dL Albumin/Globulin Ratio (1.0-2.8) Lipase (23-300) U/L Procalcitonin (<0.5) ng/mL Ur Bilirubin Confirm (Negative) Urine RBC None seen (0-5/HPF) Urine WBC 0-1/hpf (0-5/HPF) Urine Bacteria None seen (None) Ur Culture Indicated? Cult not indicated Chlamy pneumoniae PCR (Not Detect) Adenovirus (PCR) (Not Detect) B. pertussis DNA (PCR) (Not Detecte) B.parapertussis DNA PCR (Not Detecte) Coronavirus OC43 (PCR) (Not Detect) Coronavirus HKU1 (PCR) (Not Detect) Coronavirus 229E (PCR) (Not Detect) SARS-CoV-2 (PCR) (Not Detecte) Coronavirus NL63 (PCR) (Not Detect) Human Metapneumovir PCR (Not Detect) Influenza Type A (PCR) (Not Detect) Influenza Type B (PCR) (Not Detect) M. pneumoniae (PCR) (Not Detect) Parainfluenza 1 (PCR) (Not Detect) Parainfluenza 2 (PCR) (Not Detect) Parainfluenza 3 (PCR) (Not Detect) Parainfluenza 4 (PCR) (Not Detect) RSV (PCR) (Not Detect) Entero/Rhino (PCR) (Not Detect) Urine Dip Bedside Urine Glucose Negative Bedside Urine Bilirubin + 1 Bedside Urine Ketone +/- 5 Urine Specific [place] 1.015 Bedside Urine Occult Blood - Negative Bedside Urine pH 6.5 Bedside Urine Protein +/- 15 Bedside Urine Urobilinogen - Negative Bedside Urine Nitrite - Negative Bedside Urine Leukocytes + 70 Esterase Imaging Data Chest x-ray: Radiologist's Impression: PROCEDURE:? XR CHEST 1V ? INDICATIONS:? cough ? TECHNIQUE:? One view of the chest was acquired.? ? COMPARISON:? None. ? FINDINGS:? ? Surgical changes and devices:? None.? ? Lungs and pleura:? Mild patchy opacity at the left lung base.? No pleural effusion or pneumothorax. ? Mediastinum:? Mediastinal contours appear normal.? Heart size is normal.? ? Bones and chest wall:? No suspicious bony lesions.? Overlying soft tissues appear unremarkable.? ? IMPRESSION:? Mild nonspecific left basilar opacity, could represent pneumonia and/or aspiration in the appropriate clinical setting, atelectasis is also possible. ? ? Dictated by: Elbert Fernandez M.D. on 05/31/2022 at 16:46 ? ECG Data Interpretation: Normal sinus rhythm rate 86 IA interval 156 QRS [address] changes no T-wave inversions no priors MDM Narrative Medical decision making narrative: Patient 56-year-old woman meets sepsis criteria with hypotension tachycardia and fever. Overall does not appear to feel well. Respiratory like symptoms. X-ray shows possible pneumonia. However respiratory panel is also positive for entero/rhinovirus. She is found have mild leukocytosis of 11.9 normal lactic acid, normal procalcitonin no ERVIN or electrolyte abnormality. She is negative troponin. Patient's blood pressure was initially in the 90s but improve pretty easily with a sepsis fluids. She also reports that her blood pressure is normally low but unclear how low. She is a smoker given Solu-Medrol and DuoNeb treatment which helps little bit. With pneumonia possibly on x-ray and sepsis like presentation I think reasonable to treat with antibiotics. She is not requiring any oxygen. Symptoms have overall improved. I think reasonable to treat as an outpatient. CURB 65 is low. Discharge Plan Departure Patient Disposition: Home Clinical Impression: Upper respiratory infection, Pneumonia Instructions: DI for Pneumonia -- Adult, DI for Viral Upper Respiratory Infection -- Adult Activity Restrictions/Additional Instructions: *You have been diagnosed with pneumonia, upper respiratory infection *What to do: At this time stay hydrated. I hope you start feeling better soon. Treat fever as needed with Tylenol or Motrin. *Continue to take medications as directed Prednisone 40 mg once a day for 5 days Albuterol 1-2 puffs every 4 hours if need for short of breath Amoxicillin 1 g 3 times a day for 5 days Azithromycin take as directed *Follow up with your primary care provider in 2-3 days or call [phone] *Return to ER if you should have increasing chest pain shortness of breath tolerating fluids increased difficulty breathing [or] any new, worsening or concerning symptoms Prescriptions: New amoxicillin 500 mg capsule 1,000 mg PO TID 5 Days Qty: 30 0RF prednisone 20 mg tablet 40 mg PO DAILY Qty: 10 0RF albuterol sulfate 90 mcg/actuation HFA aerosol inhaler 2 puff INHALATION Q4-6H PRN (Reason: shortness of breath or wheezing) Qty: 8.5 0RF azithromycin 250 mg tablet See Rx Instructions PO .COMPLEX Qty: 6 0RF Rx Instructions: For 250 mg dose pack: take 500 mg today (day 1), then 250 mg for 4 days (days 2-5) Referrals: Miscellaneous,Doctor, MD [Primary Care Provider] - Stand Alone Forms: Patient Portal/API
[2022-05-31] MEDS: SODIUM CHLORIDE 0.9% 1,564.89 ML 521.63 ML IV (17:02)
[2022-05-31 17:58] LABS: Adenovirus Not Detected (Not Detect); B. parapertussis Not Detected (Not Detecte); Bordetella pertussis Not Detected (Not Detecte); Chlamydophila pneumoniae Not Detected (Not Detect); Coronavirus 229E Not Detected (Not Detect); Coronavirus HKU1 Not Detected (Not Detect); Coronavirus NL 63 Not Detected (Not Detect); Coronavirus OC43 Not Detected (Not Detect); Human Metapneumovirus Not Detected (Not Detect); Human Rhinovirus/Enterovirus Detected (Not Detect); Influenza A Not Detected (Not Detect); Influenza B Not Detected (Not Detect); Mycoplasma pneumoniae Not Detected (Not Detect); Parainfluenza Virus 1 Not Detected (Not Detect); Parainfluenza Virus 2 Not Detected (Not Detect); Parainfluenza Virus 3 Not Detected (Not Detect); Parainfluenza Virus 4 Not Detected (Not Detect); Respiratory Syncytial Virus Not Detected (Not Detect); SARS- CoV-2 Not Detected (Not Detecte)
[2022-05-31] MEDS: methylPREDNISolone 125 MG/2 ML VIAL IV (18:36)
[2022-05-31] MEDS: AMOXICILLIN 250 MG CAPSULE 1000 MG PO (18:36)
[2022-05-31] MEDS: AZITHROMYCIN 250 MG TABLET 500 MG PO (18:37)
[2022-05-31] MEDS: ALBUTEROL/IPRATROPIUM 3 ML AMPUL INH (18:42)
[2022-05-31 18:57] LABS: Bacteria Urine None Seen; Culture Indicated Urine Cult Not Indicated; Ictotest Urine Negative (Negative); RBC Urine None Seen (0-5/HPF); WBC Urine 0-1/HPF (0-5/HPF)
== END 2022-05-31 18:55 | disposition home or self-care (01) ==
PROVIDERS: Emergency Provider Emergency Medicine
DX: J18.9 Pneumonia, unspecified organism (principal); B34.8 Other viral infections of unspecified site; R06.02 Shortness of breath; Z20.822 Contact with and (suspected) exposure to COVID-19
CPT/HCPCS: 36415; 71045; 80053; 81003; 81015; 83605; 83690; 84145; 85025; 85610; 85730; 87040; 87633; 93005; 93010; 96361; 96374; 99284; J2930